=== PATIENT | male | born 1965 | race Caucasian/White ===

== ENCOUNTER 2017-10-23 10:43 | Emergency (ER) | payer OTHER, BC ==
[~2017-10-23] VITALS: Ht 188 cm; Wt 107.5 kg
[~2017-10-23 10:43] MED LIST: ALBU90OI; ASPI81EC PO; AZIT250 PO; Amphetamine Sal30 MG PO; CRUTCH3 USE; CYCL10 PO; FISH1000 PO; HYDACE5 PO; KETO10 PO; MODA200 PO; MULVITMIND PO; NAPR500 PO; NIAC250ER PO; Norco 5-325 Ta1 EACH PO; RXCYCL10 PO; RXHYDACE PO; TAMS.4ER PO; TIOT18 INH
[2017-10-23] MEDS ORDERED: CEPH500 PO (12:16)
[2017-10-23] MEDS ORDERED: Norco 5-325 Ta1 EACH PO (13:42)
== END 2017-10-23 14:41 | disposition home or self-care (01) ==
LOC: ER 10:43
DX: S62.637B Displaced fracture of distal phalanx of left little finger, initial encounter for open fracture (principal); S61.211A Laceration without foreign body of left index finger without damage to nail, initial encounter; S61.215A Laceration without foreign body of left ring finger without damage to nail, initial encounter; G47.30 Sleep apnea, unspecified; Z79.82 Long term (current) use of aspirin; Z79.891 Long term (current) use of opiate analgesic; Z87.891 Personal history of nicotine dependence; Z88.1 Allergy status to other antibiotic agents; Z90.49 Acquired absence of other specified parts of digestive tract; Z98.890 Other specified postprocedural states; W31.2XXA Contact with powered woodworking and forming machines, initial encounter
CPT/HCPCS: 12044; 29125; 73130; 96365; 99284; J0295; L3917

== ENCOUNTER 2017-10-24 11:48 | Emergency (ER) | payer OTHER, BC ==
[~2017-10-24] VITALS: Ht 188 cm; Wt 107.5 kg
[~2017-10-24 11:48] MED LIST changes: +CEPH500 PO
== END 2017-10-24 13:17 | disposition home or self-care (01) ==
LOC: ER 11:48
DX: S61.412D Laceration without foreign body of left hand, subsequent encounter (principal); Z88.1 Allergy status to other antibiotic agents; Z79.899 Other long term (current) drug therapy; Z90.89 Acquired absence of other organs; Z87.891 Personal history of nicotine dependence; W27.0XXD Contact with workbench tool, subsequent encounter
CPT/HCPCS: 29125; 99282; L3917

== ENCOUNTER 2017-10-28 06:05 | Day surgery (SDC) | payer OTHER, BC ==
[~2017-10-28] VITALS: Ht 188 cm; Wt 105.5 kg
[2017-10-28] MEDS ORDERED: NIAC500 PO (06:46)
[2017-10-28] MEDS ORDERED: ASCO500 PO (06:47)
[2017-10-28] MEDS ORDERED: AMPDEX30CR PO (06:48)
== END 2017-10-28 11:10 | disposition home or self-care (01) ==
LOC: ORSCSDS 06:05
PROVIDERS: Orthopaedic Surgery
PROC: 0LQ80ZZ Repair Left Hand Tendon, Open Approach (ICD-10-PCS; principal; 2017-10-28 07:30)
PROC: 0JBK0ZZ Excision of Left Hand Subcutaneous Tissue and Fascia, Open Approach (ICD-10-PCS; principal; 2017-10-28 07:30)
PROC: 0RGX04Z Fusion of Left Finger Phalangeal Joint with Internal Fixation Device, Open Approach (ICD-10-PCS; principal; 2017-10-28 07:30)
DX: S61.412A Laceration without foreign body of left hand, initial encounter (principal); J44.9 Chronic obstructive pulmonary disease, unspecified; G47.33 Obstructive sleep apnea (adult) (pediatric); F17.210 Nicotine dependence, cigarettes, uncomplicated; Z79.82 Long term (current) use of aspirin; Z79.899 Other long term (current) drug therapy
CPT/HCPCS: C1713; J0690; J1100; J1885; J2250; J2405; J3010; J7120

== ENCOUNTER 2018-01-21 10:06 | Day surgery (SDC) | payer OTHER, BC ==
[~2018-01-21] VITALS: Ht 188 cm; Wt 109.4 kg
[~2018-01-21 10:06] MED LIST changes: +AMPDEX30CR PO; +ASCO500 PO; +NIAC500 PO
== END 2018-01-21 13:58 | disposition home or self-care (01) ==
LOC: ORSCSDS 10:06
PROVIDERS: Orthopaedic Surgery
PROC: 0LS14ZZ Reposition Right Shoulder Tendon, Percutaneous Endoscopic Approach (ICD-10-PCS; principal; 2018-01-21 11:30)
PROC: 0LQ14ZZ Repair Right Shoulder Tendon, Percutaneous Endoscopic Approach (ICD-10-PCS; principal; 2018-01-21 11:30)
PROC: 0RNJ4ZZ Release Right Shoulder Joint, Percutaneous Endoscopic Approach (ICD-10-PCS; principal; 2018-01-21 11:30)
DX: M75.111 Incomplete rotator cuff tear or rupture of right shoulder, not specified as traumatic (principal); M75.41 Impingement syndrome of right shoulder; S46.111A Strain of muscle, fascia and tendon of long head of biceps, right arm, initial encounter; J44.9 Chronic obstructive pulmonary disease, unspecified; G47.33 Obstructive sleep apnea (adult) (pediatric); Z87.891 Personal history of nicotine dependence; Z79.82 Long term (current) use of aspirin; Z79.899 Other long term (current) drug therapy
CPT/HCPCS: C1713; J0171; J1100; J2250; J2370; J2405; J2710; J3010; J7120

== ENCOUNTER 2019-08-13 11:33 | Emergency (ER) | payer OTHER, BC ==
[~2019-08-13] VITALS: Ht 188 cm; Wt 108.9 kg
[~2019-08-13 11:33] MED LIST changes: +Naprosyn500 MG PO
[2019-08-13 12:36] LABS: Source, Urine Clean Catch
[2019-08-13 12:39] LABS: BASOPHILS ABSOLUTE AUTO 0.03 K/mm3 (0.00-0.23); BASOPHILS PERCENT AUTO 0 % (0-2); EOSINOPHILS ABSOLUTE AUTO 0.05 K/mm3 (0.00-0.68); EOSINOPHILS PERCENT AUTO 1 % (0-6); Hematocrit 43.2 % (37.0-53.0); Hemoglobin 14.6 g/dL (13.5-17.5); IMMATURE GRAN ABSOLUTE AUTO 0.02 K/mm3 (0.00-0.10); IMMATURE GRAN PERCENT AUTO 0 % (0-1); LYMPHOCYTES ABSOLUTE AUTO 1.23 K/mm3 (0.84-5.20); LYMPHOCYTES PERCENT AUTO 17 % (21-46); MONOCYTES ABSOLUTE AUTO 0.55 K/mm3 (0.16-1.47); MONOCYTES PERCENT AUTO 8 % (4-13); Mean Corpuscular HGB 30.5 pg (26.0-34.0); Mean Corpuscular HGB Conc 33.8 g/dL (31.5-36.5); Mean Corpuscular Volume 90 fL (80-100); Mean Platelet Volume 9.7 fL (9.1-12.4); NEUTROPHILS ABSOLUTE AUTO 5.46 K/mm3 (1.96-9.15); NEUTROPHILS PERCENT AUTO 74 % (41-73); Platelet Count 265 K/mm3 (150-400); RDW Coefficient Variation 11.9 % (11.7-14.2); RDW Standard Deviation 39.1 fL (35.1-46.3); Red Blood Cell Count 4.79 M/mm3 (4.30-5.90); White Blood Cell Count 7.34 K/mm3 (4.00-11.30)
[2019-08-13 12:40] LABS: Bilirubin, Urine Neg (Neg); Blood, Urine Neg (Neg); Glucose Qualitative, Urine Neg (Neg); Ketones, Urine Neg (Neg); Leukocyte Esterase, Urine Neg (Neg); Nitrite, Urine Neg (Neg); Protein, Urine Neg (Neg); Urobilinogen, Urine NORM (Normal)
[2019-08-13 12:41] LABS: Appearance, Urine Clear (Clear); Color, Urine Yellow (P-Yellow)
[2019-08-13 13:01] LABS: Alanine Aminotransfer (ALT/SGP 59 U/L (12-78); Albumin, Blood 3.6 g/dL (3.4-5.0); Albumin/Globulin Ratio 1.2 (0.8-1.8); Alk Phos 51 U/L (50-136); Anion Gap 7 mmol/L (6-16); Aspartate Aminotrans (AST/SGOT 31 U/L (12-37); Bilirubin, Total 0.3 mg/dL (0.1-1.0); Blood Urea Nitrogen 19 mg/dL (8-24); Bun/Creatinine Ratio 22.1 (12.0-20.0); CO2, Blood 26 mmol/L (21-32); Calcium, Blood 8.4 mg/dL (8.5-10.1); Chloride, Blood 106 mmol/L (98-108); Creatinine, Blood 0.86 mg/dL (0.60-1.20); Globulin, Blood 2.9 g/dL (2.2-4.0); Glomerular Filtration Rate >60 (60-); Glucose, Blood 106 mg/dL (70-99); Potassium, Blood 4.3 mmol/L (3.5-5.5); Sodium, Blood 139 mmol/L (136-145); Total Protein, Blood 6.5 g/dL (6.4-8.2)
[2019-08-13] MEDS ORDERED: Norco 5-325 Ta1 EACH PO (13:56)
== END 2019-08-13 13:59 | disposition home or self-care (01) ==
LOC: ER 11:33
PROVIDERS: Emergency Medicine
DX: N20.0 Calculus of kidney (principal); K57.30 Diverticulosis of large intestine without perforation or abscess without bleeding; G47.30 Sleep apnea, unspecified; Z87.891 Personal history of nicotine dependence; Z79.899 Other long term (current) drug therapy; Z79.82 Long term (current) use of aspirin
CPT/HCPCS: 36415; 74176; 80053; 81003; 83690; 85025; 96361; 96374; 96375; 99284-25; J2405; J3010; J7030